=== PATIENT | male | born 1945 | race Caucasian/White ===

== ENCOUNTER 2021-08-13 09:15 | Day surgery (SDC) | payer MEDICARE ==
[2021-08-13] MEDS ORDERED: Sodium Chloride 0.9% 1,000 ML IV SCH (10:00)
[2021-08-13] MEDS ORDERED: Midazolam 1 MG/ML 2 ML SDV ONE (10:12)
[2021-08-13] MEDS ORDERED: fentaNYL 100 MCG/2 ML SDV ONE (10:12)
[2021-08-13] MEDS ORDERED: Propofol 200 MG/20 ML SDV ONE (10:12)
--- NOTE | 2021-08-13 11:57 | OR ---
DATE OF PROCEDURE: 08/13/2021 SURGEON: Jai Lawrence MD PROCEDURE: Colonoscopy. FINDINGS: 1. Ascending colon polyp, approximately 5 mm, completely removed using cold biopsy forceps. 2. Sigmoid colon polyp, approximately 8 mm, completely removed using endoscopic mucosal resection. COMPLICATIONS: None. BASKET TURNER: None. ANESTHESIA: MAC. PREOPERATIVE DIAGNOSIS: Screening colonoscopy. POSTOPERATIVE DIAGNOSIS: Screening colonoscopy. RISKS: Risks, benefits, alternatives, and limitations including, but not limited to infection, bleeding, perforation, false positives, false negatives were explained to the patient who wished to proceed. PROCEDURE IN DETAIL: The patient was placed in left lateral decubitus position. Digital rectal exam was performed without abnormality. Scope was introduced and advanced atraumatically to the ileocecal valve. Scope was brought back to the ascending, transverse, descending colon, and retroflexed. The aforementioned polyps were identified and completely removed as described above. No evidence of old or new blood. No colitis. No other abnormalities. Greater than 8 minutes was spent removing the scope. The prep was acceptable, approximately 90% of the luminal surface could be seen. The patient tolerated the procedure well. Jai Lawrence MD /[id number]
== END 2021-08-13 12:20 | disposition home or self-care (01) ==
LOC: JP.SDS 09:15
PROVIDERS: ATTEND Surgery
DX: Z12.11 Encounter for screening for malignant neoplasm of colon (principal); D12.3 Benign neoplasm of transverse colon; D12.5 Benign neoplasm of sigmoid colon
CPT/HCPCS: 45380; 45390; 88305; J2250; J2704; J3010; J7030

== ENCOUNTER 2022-04-28 13:27 | Emergency (ER) | payer MEDICARE ==
[2022-04-28] MEDS ORDERED: Lidocaine 1% 5 ML VIAL INJECT ONE (14:23)
[2022-04-28] MEDS ORDERED: Bacitracin Oint 1 GM U/D Packet TOP ONE (14:23)
== END 2022-04-28 15:44 | disposition home or self-care (01) ==
LOC: JP.ED 13:27
DX: S61.213A Laceration without foreign body of left middle finger without damage to nail, initial encounter (principal); Z79.899 Other long term (current) drug therapy; Z79.82 Long term (current) use of aspirin; Z90.49 Acquired absence of other specified parts of digestive tract; W23.1XXA Caught, crushed, jammed, or pinched between stationary objects, initial encounter
CPT/HCPCS: 73140-26-F2; 73140-F2; 99283

== ENCOUNTER 2022-10-20 06:55 | Day surgery (SDC) | payer MEDICARE ==
[2022-10-20] MEDS ORDERED: Propofol 200 MG/20 ML SDV ONE (07:25)
[2022-10-20] MEDS ORDERED: fentaNYL 100 MCG/2 ML SDV ONE (07:25)
[2022-10-20] MEDS ORDERED: Lactated Ringers 1,000 ML IV SCH (07:30)
== END 2022-10-20 09:50 | disposition home or self-care (01) ==
LOC: JP.SDS 06:55
PROVIDERS: ATTEND Student in an Organized Health Care Education/Training Program
DX: Z12.11 Encounter for screening for malignant neoplasm of colon (principal); K57.30 Diverticulosis of large intestine without perforation or abscess without bleeding; E78.5 Hyperlipidemia, unspecified; Z86.010 Personal history of colon polyps; Z79.899 Other long term (current) drug therapy
CPT/HCPCS: J2704; J3010; J7120

== ENCOUNTER 2025-08-12 09:25 | Day surgery (SDC) | payer MEDICARE ==
[2025-08-12] MEDS: Lactated Ringers 1,000 ML IV SCH (10:13)
[2025-08-12] MEDS ORDERED: Propofol 200 MG/20 ML SDV ONE (10:19)
[2025-08-12] MEDS ORDERED: fentaNYL 50 MCG/ML SDV ONE (10:19)
== END 2025-08-12 12:29 | disposition home or self-care (01) ==
LOC: JP.SDS 09:25
PROVIDERS: ATTEND Surgery
DX: K20.90 Esophagitis, unspecified without bleeding (principal); K22.89 Other specified disease of esophagus; Z79.82 Long term (current) use of aspirin; Z79.899 Other long term (current) drug therapy
CPT/HCPCS: 00731; 43239; J2704; J3010; J7120